=== PATIENT | male | born 1965 | race Caucasian/White ===

== ENCOUNTER 2016-08-06 14:48 | Emergency (ER) | payer OTHER ==
--- NOTE | ~2016-08-06 | CR72 ---
[facility] A Service of [facility] RADIOLOGY TEXT RESULTS PATIENT: SABA SARMIENTO LOCATION: [facility] : 69 UNIT #: [id number] AGE: [address]: Terrell Wallace MD SEX: M ORDER DR: [id number] [facility] [address] [place], [place] [address] [id number] E MR#: [id number] Acc #: [id number] NAME: SABA SARMIENTO : 1965 SEX: M STUDY DATE/TIME: 08/06/2016 17:58 UNIT: [facility] ROOM: STUDY DESCRIPTION: CR Chest Single View Portable Attending Physician: Terrell Wallace M.D. Ordering Physician: Terrell Wallace M.D. Primary Care Physician: [facility] IMAGING REPORT This report is preliminary unless electronic signature is present EXAM Single view of the chest, 08/06/2016 COMPARISON Single view of the chest dated 04/04/2014. HISTORY Shortness of air, coughing up blood and mucous for 3 hours. FINDINGS Single view of the chest was obtained. Lungs appear to be slightly hyperinflated which could be due to deep inspiration in this 51 year old or mild emphysematous changes depending on the clinical setting. There is minimal 1 cm to 1.5 cm ill-defined opacity noted in the lateral right lower lung zone close to the lateral CP angle. It could be related to summation of shadows or minimal alveolar disease, slightly prominent in opacity since the prior study from 2.5 years ago. The remaining lungs do not demonstrate any significant abnormality. Heart, mediastinum and bones are stable without any significant abnormality either. Dictated by... Alexey Haynes M.D. THIS IS AN ELECTRONICALLY VERIFIED REPORT Alexey Haynes M.D. at 08/07/2016 2:24 PM CPR/ljd TD: 08/06/2016 21:24 JOB #: [id number] [facility] A Service of [facility] RADIOLOGY TEXT RESULTS PATIENT: SABA SARMIENTO LOCATION: [facility] #: [id number] : [birth year] UNIT #: [id number] AGE: [address]: Terrell Wallace MD SEX: M ORDER DR: MEDICAL IMAGING REPORT Page 1 of 1 COPY
--- NOTE | ~2016-08-06 | EKG ---
PATIENT: SABA SARMIENTO UNIT #: [id number] Ventricular Rate: 77 BPM Atrial Rate: 77 BPM P-R Interval: 152 ms QRS Duration: 92 ms Q-T Interval: 384 ms QTC Calculation(Bezet): 434 ms P Archie: 81 degrees Calculated R Archie: 71 degrees Calculated T Archie: 82 degrees Diagnosis Line: Sinus rhythm with occasional Premature ventricular Diagnosis Line: complexes Diagnosis Line: Moderate voltage criteria for LVH, may be normal Diagnosis Line: variant Diagnosis Line: Borderline ECG Diagnosis Line: When compared with ECG of 04-APR-2014 16:27, Diagnosis Line: Premature ventricular complexes are now Present Diagnosis Line: Confirmed by JAVI QUEVEDO MD ([id number]) on 08/07/2016 Diagnosis Line: 8:22:10 PM INTERPRETING MD: SAE JEFFERS
[~2016-08-06 14:48] MED LIST: ACETAMINOPHEN PO; ADVAIR 5001 DISK W/D PO; ALBUTEROL MININEB NEB; ANEXSIA 5/325 M1 TA1 PO; BACTRIM DS TABL1 TAB PO; BENZONATATE PO; CIPRO PO; COLACE PO; COMBIVENT INH14.7 GM; COMBIVENT U/D3 M2 INH; COMBIVENT14.7 GM INH; DICLOFENAC PO; DOXYCYCLINE PO; DUONEB 2.5-0.5 M3 ML NEB; HUMIBID-LA600 MG PO; IBUPROFEN PO; LEVAQUIN PO; LEVAQUIN750 M1 PO; LIDODERM30 EA TOP; LORTAB 10/500 T1 TAB PO; LORTAB 7.5-5001 TAB PO; OXYGEN; PERCOCET 5-3251 TAB PO; PREDNISONE; PREDNISONE PO; PREDNISONE10 MG/DOSE PO; SYMBICORT; SYMBICORT INH; VICODIN PO; VOLTAREN50 MG PO
[2016-08-06 15:48] LABS: BASOPHIL# 0.1 X10e3 (0-0.3); BASOPHIL% 1.1 % (0-2.5); EOSINOPHIL# 0.2 X10e3 (0-0.7); EOSINOPHIL% 2.3 % (0.0-7.0); HEMATOCRIT 45.3 % (38.0-50.0); LYMPHOCYTE# 2.7 X10e3 (1.0-3.5); LYMPHOCYTE% 32.8 % (17.0-45.0); MEAN CELL VOLUME 91.3 FL (83-96); MEAN CORPUSCULAR HEMOGLOBIN 30.2 PG (28-34); MEAN CORPUSCULAR HGB CONC 33.1 g/dL (30-36); MEAN PLATELET VOLUME 9.9 FL (6.5-11.5); MONOCYTE# 0.5 X10e3 (0-1.0); MONOCYTE% 6.6 % (3.0-12.0); NEUTROPHIL# 4.7 X10e3 (1.5-7.1); NEUTROPHIL% 57.2 % (40-75); PLATELET COUNT 229 X10e3 (140-420); RED BLOOD COUNT 4.97 X10e (3.90-5.60); RED CELL DISTRIBUTION WIDTH 14.4 % (11.0-15.5); WHITE BLOOD COUNT 8.2 X10e3 (4.0-10.5)
[2016-08-06 15:51] LABS: DIFF IND NO
[2016-08-06 16:09] LABS: ALBUMIN SERUM 4.2 g/dL (3.5-5.0); BILIRUBIN, DIRECT 0.1 mg/dL (0.0-0.2); BILIRUBIN,INDIRECT 0.5 mg/dL (0.0-0.9); BILIRUBIN,TOTAL 0.6 mg/dL (0.2-2.0); BUN/CREATININE RATIO 14.44; CALCIUM SERUM 9.2 mg/dL (8.4-10.2); CREATININE SERUM 0.9 mg/dL (0.6-1.4); GLOM FILT RATE Estimated 99.9 mL/min (>60); POTASSIUM 3.8 mmol/L (3.5-5.1); PROTEIN TOTAL SERUM 7.8 g/dL (6.0-8.3)
[2016-08-06 18:06] LABS: POC - CKMB 1.6 ng/mL (0.0-7.9); POC - TROPONIN <0.05 ng/mL (<=0.05)
== END 2016-08-06 19:15 | disposition home or self-care (01) ==
LOC: CED 14:48
PROVIDERS: Emergency Medicine
DX: J44.1 Chronic obstructive pulmonary disease with (acute) exacerbation (principal); J20.9 Acute bronchitis, unspecified; J44.0 Chronic obstructive pulmonary disease with (acute) lower respiratory infection; J18.9 Pneumonia, unspecified organism; F17.210 Nicotine dependence, cigarettes, uncomplicated
CPT/HCPCS: 36415; 71010; 80048; 80076; 82553; 84484; 85025; 93005; 96374; 99285; J2765; J2930